=== PATIENT | female | born 1965 | race Caucasian/White ===

== ENCOUNTER 2017-12-14 02:45 | Emergency (ER) | payer MEDICARE, MEDICAID ==
[~2017-12-14] VITALS: Ht 157.5 cm; Wt 89.2 kg
[~2017-12-14 02:45] MED LIST: AMLODIPINE5 MG PO; COGENTIN1 M2 PO; CRESTOR20 MG PO; ESTRACE1 MG PO; LASIX 20 MG20 MG/TAB PO; LISINOPRIL2.5 MG PO; LORTAB 10 PO; LORTAB 10-325 M1 TAB PO; PREDNISONE10 MG PO; PROMETHAZINE12.5 MG PO; PROTONIX40 M2 PO; ULTRAM50 M1 PO; VITAMIN D32000 UNI2 PO
[2017-12-14] MEDS ORDERED: PREDNISONE10 MG PO (03:09)
[2017-12-14] MEDS ORDERED: METOPROL TAR25 MG PO (03:09)
[2017-12-14] MEDS ORDERED: PROAIR HFA108 MCG/AC IN (03:09)
[2017-12-14] MEDS ORDERED: LORTAB 1010 MG PO (04:11)
[2017-12-14 04:24] VITALS: BP 101/53
== END 2017-12-14 04:23 | disposition home or self-care (01) ==
LOC: ED 02:45
DX: S42.251A Displaced fracture of greater tuberosity of right humerus, initial encounter for closed fracture (principal); S83.92XA Sprain of unspecified site of left knee, initial encounter; I11.9 Hypertensive heart disease without heart failure; I25.2 Old myocardial infarction; M06.9 Rheumatoid arthritis, unspecified; W01.0XXA Fall on same level from slipping, tripping and stumbling without subsequent striking against object, initial encounter; Y92.89 Other specified places as the place of occurrence of the external cause; Z87.891 Personal history of nicotine dependence

== ENCOUNTER → 2018-05-08 | Outpatient (REF) | payer MEDICARE, MEDICAID ==
[~2018-05-08] MED LIST changes: +LORTAB 1010 MG PO; +METOPROL TAR25 MG PO; +PROAIR HFA108 MCG/AC IN
== END | disposition home or self-care (01) ==
LOC: BD 05-05 13:30
PROVIDERS: ATTEND Internal Medicine Rheumatology
DX: M81.0 Age-related osteoporosis without current pathological fracture (principal)

== ENCOUNTER → 2018-05-09 | Outpatient (REF) | payer MEDICARE ==
[2018-05-09 12:40] LABS: URINE BILIRUBIN - DIPSTICK NEGATIVE (NEGATIVE); URINE BLOOD DIPSTICK NEGATIVE (NEGATIVE); URINE CLARITY CLOUDY; URINE COLOR YELLOW; URINE GLUCOSE - DIPSTICK NEGATIVE (NEGATIVE); URINE KETONE NEGATIVE (NEGATIVE); URINE LEUK ESTERASE SMALL (NEGATIVE); URINE NITRITE - DIPSTICK POSITIVE (Negative); URINE PROTEIN - DIPSTICK NEGATIVE (NEG-TRACE); URINE SPECIFIC GRAVITY 1.015; URINE UROBILINOGEN - DIPSTICK 0.2 E.U./dL (0.2)
[2018-05-09 12:41] LABS: URINE BACTERIA MANY hpf; URINE EPITHELIAL CELLS MODERATE EPI/hpf (0-FEW)
== END | disposition home or self-care (01) ==
LOC: LABSPEC 12:27
DX: N17.9 Acute kidney failure, unspecified (principal); B96.20 Unspecified Escherichia coli [E. coli] as the cause of diseases classified elsewhere; N39.0 Urinary tract infection, site not specified; Z79.52 Long term (current) use of systemic steroids; M06.9 Rheumatoid arthritis, unspecified

== ENCOUNTER 2024-10-23 05:40 | Emergency (ER) | payer MEDICARE ==
[2024-10-23] VITALS (18 sets, daily range): BP systolic 80–157; BP diastolic 42–118
[~2024-10-23] VITALS: Ht 157.5 cm; Wt 76.1 kg
[2024-10-23] MEDS ORDERED: LORazepam 2 MG/ML IV ONE (06:25)
[2024-10-23 06:36] LABS: BASO% 0.2 % (0-3); EOS% 2.1 % (0-8); HEMATOCRIT 36.9 % (37.0-47.0); HEMOGLOBIN 11.5 g/dl (12.0-16.0); IMMATURE GRANULOCYTES 0.1 % (0.0-5.0); MEAN CELL VOLUME 105.1 fL CALC (80.0-100.0); MEAN CORPUSCULAR HGB 32.8 pG CALC (26.0-32.0); MEAN CORPUSCULAR HGB CONC 31.2 g/dL CAL (32.0-36.0); MONO% 5.5 % (2-13); NEUT# 14.4 thou/uL (2.00-7.15); NEUT% 82.1 % (42-76); RED BLOOD COUNT 3.51 mill/uL (4.20-5.60); RED CELL DISTRI WIDTH 12.4 % (11.5-15.5)
[2024-10-23 06:48] LABS: ALBUMIN 3.8 g/dL (3.2-5.0); ALKALINE PHOSPHATASE 75 u/l (38-126); BILIRUBIN, TOTAL 0.5 mg/dL (0.02-1.3); CARBON DIOXIDE 19 mmol/l (22-30); CHLORIDE 110 mmol/l (95-108); CPK 861 u/l (30-135); CREATININE 4.4 mg/dL (0.5-1.0); ESTIMATED GFR 11 ML/MIN (>=90 (CALC)); SODIUM 135 mmol/l (137-146); TOTAL PROTEIN 6.7 g/dL (6.3-8.2)
[2024-10-23 06:50] LABS: ANION GAP 10 (6-22 (CALC)); BUN 34 mg/dL (7-17); BUN/CREATININE RATIO 8 (12-20 (CALC)); POTASSIUM 4.2 mmol/l (3.5-5.1); SGOT/AST 51 u/l (14-36)
[2024-10-23 06:51] LABS: ETHYL ALCOHOL < 10 mg/dl (0-30); MAGNESIUM 2.6 mg/dL (1.6-2.3)
[2024-10-23 06:58] LABS: ACT PARTIAL THROMBO TIME 25.6 SECONDS (20.0-32.5); D-DIMER 0.97 mg/L (0.19-0.60); INTERNATIONAL NORMALIZED RATIO 0.9 RATIO (0.7-1.3)
[2024-10-23 07:01] LABS: PROTHROMBIN TIME 9.5 SECONDS (9.0-12.5)
[2024-10-23] MEDS ORDERED: NALOXONE HCL 0.4 MG/ML 1ML AMP IV ONE (07:50)
[2024-10-23 07:57] LABS: URINE BILIRUBIN - DIPSTICK Negative (NEGATIVE); URINE BLOOD DIPSTICK Trace-lysed (NEGATIVE); URINE GLUCOSE - DIPSTICK Negative (NEGATIVE); URINE KETONE Negative (NEGATIVE); URINE LEUK ESTERASE Negative (NEGATIVE); URINE NITRITE - DIPSTICK Negative (Negative); URINE PH 5.5 (4.5-8.0); URINE PROTEIN - DIPSTICK Trace mg/dL (NEG-TRACE); URINE UROBILINOGEN - DIPSTICK 0.2 E.U./dL (0.2)
[2024-10-23 07:58] LABS: URINE COLOR Light yellow
[2024-10-23] MEDS ORDERED: NALOXONE HCL 1 MG/ML SYR IV ONE ×2 (08:05→09:30)
== END 2024-10-23 10:01 | disposition short-term general hospital (02) ==
LOC: ED 05:40
PROVIDERS: Family Medicine
PROC: 0T9B70Z Drainage of Bladder with Drainage Device, Via Natural or Artificial Opening (ICD-10-PCS; principal; 2024-10-23)
DX: R41.82 Altered mental status, unspecified (principal); N19 Unspecified kidney failure; I71.9 Aortic aneurysm of unspecified site, without rupture; I10 Essential (primary) hypertension; I25.2 Old myocardial infarction; F17.200 Nicotine dependence, unspecified, uncomplicated
CPT/HCPCS: J0696; J2060